=== PATIENT | male | born 1985 | race African-American/Black ===

== ENCOUNTER 2025-06-05 23:16 | Inpatient (IN) | payer OTHER, SELFPAY ==
[2025-06-05 19:42] VITALS: BP 163/67
[2025-06-05 20:42] LABS: Hematocrit 51.5 % (39.0-52.0); Hemoglobin 17.0 g/dL (13.0-18.0); Mean Corp Hgb Conc. 33.0 g/dL (33.0-37.0); Mean Corpuscular Volume 88.5 fL (80.0-94.0); Nucleated Red Blood Cells % 0 % (-); Platelet Count 289 10^3/uL (130-400); Red Cell Dist. Width 14.8 % (11.5-14.5)
[2025-06-05 20:48] LABS: ALT (SGPT) 20 U/L (0-50); AST (SGOT) 20 U/L (17-59); Albumin 4.6 g/dl (3.5-5.0); Alkaline Phosphatase 65 U/L (38-126); Blood Urea Nitrogen 14 mg/dl (9-20); Calcium 9.3 mg/dl (8.4-10.2); Carbon Dioxide 28 mmol/L (22-30); Chloride 103 mmol/L (98-107); Glucose 80 mg/dl (70-99); Potassium 3.8 mmol/L (3.5-5.1); Sodium 136 mmol/L (135-145); Total Protein 8.0 g/dl (6.3-8.2); eGFR > 60.00
--- NOTE | 2025-06-05 20:52 | ED.GENMED ---
History of Present Illness
<Maria De Jesus Camilo PA-C - Last Filed: 06/06/25 01:35>
General
Chief Complaint: Breathing Problem
Source: patient
Exam Limitations: none
Time Seen by Provider: 06/05/25 20:49
History of Present Illness
History of Present Illness:
39yoM with a prior history of methamphetamine use (last use November of this year, currently at [facility]) presenting for evaluation of shortness of breath. Symptoms began this morning. Patient initially started with URI symptoms and cough.
He subsequently developed dyspnea. He states it feels like a brick is sitting on top of his chest. He denies any fevers. No prior history of asthma. He vapes nicotine.
Phy Exam
<Maria De Jesus Camilo PA-C - Last Filed: 06/06/25 01:35>
General Physical Exam
General Presentation: moderate distress
General Skin: warm and dry
General Habitus: normal
General Mental: alert
ENT Exam
ENT Exam: normocephalic
Cardiovascular Exam
Cardiovascular Exam: regular rate/rhythm
Pulmonary Exam
Pulmonary Exam: generalized wheezing and other (Moderate respiratory distress noted with tachypnea, generalized wheezing, and conversational dyspnea.)
Neurological Exam
Neurological Exam: alert
Fredy Coma Scale
Eye Opening: Spontaneous
Verbal Response: Oriented
Motor Response: Obeys Commands
GCS Total Score: 15
Skin Exam
Skin Exam: normal color and warm/dry
Psychiatric Exam
Psychiatric Exam: normal mood/affect
Course
<Maria De Jesus Camilo PA-C - Last Filed: 06/06/25 01:35>
Orders/Labs/Results
Orders:
Orders
06/05/25 19:41
Electrocardiogram (*1) Urgent
Reason for Study: Shortness of Breath
EKG- Treatment ONCE
06/05/25 20:01
Complete Blood Count/With Diff Urgent
Comprehensive Metabolic Panel Urgent
Troponin I Urgent
06/05/25 20:57
Albuterol Sulfate [Ventolin Nebules] 10 mg INH R NOW STA
Dexamethasone Sod Phosphate [Decadron] 10 mg IV NOW STA
Ipratropium Nebs [Atrovent Nebules] 0.5 mg INH R NOW STA
Magnesium Sulfate 2 Gram/50 ml [Magnesium Sulfate] 2 gram in 50 ml IV NOW
CXR Port [CR Chest Portable - 1 View] Stat
Comment:
Reason For Exam: SOB
Reason Study Needs to be Portable: Patient Unstable
06/05/25 21:10
COVID-19 Antigen Urgent
Source: Nasal Swab
D-Dimer Urgent
Influenza A+B Rapid Molecular Urgent
MADIHA Source: Nasal Swab
Specimen Description:
06/05/25 22:23
Albuterol Sulfate [Ventolin Nebules] 10 mg INH R NOW STA
Ipratropium Nebs [Atrovent Nebules] 1 mg INH R NOW STA
06/05/25 23:06
Admit/Transfer Patient As Directed
Co-Sign Provider:
Level of Care: Inpatient admission
Assign to:: Telemetry
Physician / Group: oneyda
Diagnosis: asthmatic bronchitis
Reason for Telemetry: Arrhythmia
Date to Stop Telemetry: 06/08/25
Time to Stop Telemetry: 11:00
Reason for Hospitalization: asthmatic bronchitis
Expected length of stay greater than two midnights?: Yes
ELOS- Estimated Length of Stay in days: 2
I certify the patient meets the requirements for IP care: Yes
Code Status As Directed
Resuscitation Status: Full Code
PRN Pain Medication Management As Directed
May give lesser potent ordered pain med per pt: Yes
preference::
Protocol:: Medication orders for pain may be administered in a
manner that supports deferring to patient preference
when the pt is:
- Requesting an ordered lesser potent pain medication.
Least to most potent pain medications are defined
as: acetaminophen < NSAID < tramadol < opioids
(morphine, oxycodone, hydromorphone).
- Requesting a lesser dose of the same medication IF
ORDERED.
- Requesting a less intrusive route of administration
if both routes are prescribed by the provider (PO <
IV).
06/05/25 23:09
PRN Pain Medication Management As Directed
May give lesser potent ordered pain med per pt: Yes
preference::
Protocol:: Medication orders for pain may be administered in a
manner that supports deferring to patient preference
when the pt is:
- Requesting an ordered lesser potent pain medication.
Least to most potent pain medications are defined
as: acetaminophen < NSAID < tramadol < opioids
(morphine, oxycodone, hydromorphone).
- Requesting a lesser dose of the same medication IF
ORDERED.
- Requesting a less intrusive route of administration
if both routes are prescribed by the provider (PO <
IV).
06/06/25 01:14
Dexamethasone Sod Phosphate [Decadron] 4 mg IV Q12H
06/06/25 01:14
Activity As Directed
Activity Level: As Tolerated
Vital Signs As Directed
Frequency: Per unit guidelines
DX Deep Vein Thrombosis Video Routine
06/06/25 06:00
Complete Blood Count/With Diff IN AM
Comprehensive Metabolic Panel IN AM
06/06/25 08:00
Heparin 5,000 units SC Q12
Ipratropium/Albuterol Sulfate [Duoneb] 3 ml INH R QID
06/06/25 Dinner
Regular
At Your Request: Full Participation
06/08/25 11:00
DC Protocol for Telemetry ONCE
Abnormal Lab Results
06/05/25
20:01
WBC 15.1 H 10^3/uL
(4.8-10.8)
RDW 14.8 H %
(11.5-14.5)
Abs Immat Gran (auto) 0.1 H 10^3/uL
(0-0.05)
Absolute Neuts (auto) 11.8 H 10^3/uL
(1.4-6.5)
Absolute Monos (auto) 1.7 H 10^3/uL
(0.1-0.6)
Neutrophils % 78.1 H %
(42.2-75.2)
Lymphocytes % 8.9 L %
(20.5-51.1)
Monocytes % 10.9 H %
(1.7-9.3)
06/05/25 20:01
06/05/25 20:01
Vital Signs
Initial and Last Documented VS:
Initial Vital Signs
Temp Pulse Resp BP Pulse Ox
98.6 F 108 20 163/67 94
06/05/25 19:42 06/05/25 19:42 06/05/25 19:42 06/05/25 19:42 06/05/25 19:42
Last Documented Vital Signs
Temp Pulse Resp BP Pulse Ox
98.6 F 119 27 163/67 91
06/05/25 19:42 06/05/25 23:45 06/05/25 23:45 06/05/25 19:42 06/05/25 23:45
<Frank Suero, DO - Last Filed: 06/05/25 22:45>
Orders/Labs/Results
Orders:
Orders
06/05/25 19:41
Electrocardiogram (*1) Urgent
Reason for Study: Shortness of Breath
EKG- Treatment ONCE
06/05/25 20:01
Complete Blood Count/With Diff Urgent
Comprehensive Metabolic Panel Urgent
Troponin I Urgent
06/05/25 20:57
Albuterol Sulfate [Ventolin Nebules] 10 mg INH R NOW STA
Dexamethasone Sod Phosphate [Decadron] 10 mg IV NOW STA
Ipratropium Nebs [Atrovent Nebules] 0.5 mg INH R NOW STA
Magnesium Sulfate 2 Gram/50 ml [Magnesium Sulfate] 2 gram in 50 ml IV NOW
CXR Port [CR Chest Portable - 1 View] Stat
Comment:
Reason For Exam: SOB
Reason Study Needs to be Portable: Patient Unstable
06/05/25 21:10
COVID-19 Antigen Urgent
Source: Nasal Swab
D-Dimer Urgent
Influenza A+B Rapid Molecular Urgent
MADIHA Source: Nasal Swab
Specimen Description:
06/05/25 22:23
Albuterol Sulfate [Ventolin Nebules] 10 mg INH R NOW STA
Ipratropium Nebs [Atrovent Nebules] 1 mg INH R NOW STA
06/05/25 23:06
Admit/Transfer Patient As Directed
Co-Sign Provider:
Level of Care: Inpatient admission
Assign to:: Telemetry
Physician / Group: oneyda
Diagnosis: asthmatic bronchitis
Reason for Telemetry: Arrhythmia
Date to Stop Telemetry: 06/08/25
Time to Stop Telemetry: 11:00
Reason for Hospitalization: asthmatic bronchitis
Expected length of stay greater than two midnights?: Yes
ELOS- Estimated Length of Stay in days: 2
I certify the patient meets the requirements for IP care: Yes
Code Status As Directed
Resuscitation Status: Full Code
PRN Pain Medication Management As Directed
May give lesser potent ordered pain med per pt: Yes
preference::
Protocol:: Medication orders for pain may be administered in a
manner that supports deferring to patient preference
when the pt is:
- Requesting an ordered lesser potent pain medication.
Least to most potent pain medications are defined
as: acetaminophen < NSAID < tramadol < opioids
(morphine, oxycodone, hydromorphone).
- Requesting a lesser dose of the same medication IF
ORDERED.
- Requesting a less intrusive route of administration
if both routes are prescribed by the provider (PO <
IV).
06/05/25 23:09
PRN Pain Medication Management As Directed
May give lesser potent ordered pain med per pt: Yes
preference::
Protocol:: Medication orders for pain may be administered in a
manner that supports deferring to patient preference
when the pt is:
- Requesting an ordered lesser potent pain medication.
Least to most potent pain medications are defined
as: acetaminophen < NSAID < tramadol < opioids
(morphine, oxycodone, hydromorphone).
- Requesting a lesser dose of the same medication IF
ORDERED.
- Requesting a less intrusive route of administration
if both routes are prescribed by the provider (PO <
IV).
06/06/25 01:14
Dexamethasone Sod Phosphate [Decadron] 4 mg IV Q12H
06/06/25 01:14
Activity As Directed
Activity Level: As Tolerated
Vital Signs As Directed
Frequency: Per unit guidelines
DX Deep Vein Thrombosis Video Routine
06/06/25 06:00
Complete Blood Count/With Diff IN AM
Comprehensive Metabolic Panel IN AM
06/06/25 08:00
Heparin 5,000 units SC Q12
Ipratropium/Albuterol Sulfate [Duoneb] 3 ml INH R QID
06/06/25 Dinner
Regular
At Your Request: Full Participation
06/08/25 11:00
DC Protocol for Telemetry ONCE
Abnormal Lab Results
06/05/25
20:01
WBC 15.1 H 10^3/uL
(4.8-10.8)
RDW 14.8 H %
(11.5-14.5)
Abs Immat Gran (auto) 0.1 H 10^3/uL
(0-0.05)
Absolute Neuts (auto) 11.8 H 10^3/uL
(1.4-6.5)
Absolute Monos (auto) 1.7 H 10^3/uL
(0.1-0.6)
Neutrophils % 78.1 H %
(42.2-75.2)
Lymphocytes % 8.9 L %
(20.5-51.1)
Monocytes % 10.9 H %
(1.7-9.3)
06/05/25 20:01
06/05/25 20:01
Vital Signs
Initial and Last Documented VS:
Initial Vital Signs
Temp Pulse Resp BP Pulse Ox
98.6 F 108 20 163/67 94
06/05/25 19:42 06/05/25 19:42 06/05/25 19:42 06/05/25 19:42 06/05/25 19:42
Last Documented Vital Signs
Temp Pulse Resp BP Pulse Ox
98.6 F 119 27 163/67 91
06/05/25 19:42 06/05/25 23:45 06/05/25 23:45 06/05/25 19:42 06/05/25 23:45
Lisalt;Maria De Jesus Camilo PA-C - Last Filed: 06/06/25 01:35>
MDM/Problems Addressed
Differential Diagnosis Includes:
39yoM here with SOB and cough that began this morning. Oxygen saturation 94% in triage. Patient in moderate respiratory distress on initial exam with generalized wheezing and tachypnea. No history of asthma but patient does vape. Differential
diagnosis includes but is not limited to: Vaping related lung injury, bronchitis, pneumonia, pneumothorax, asthma exacerbation
Initial ED plan: Workup initiated in triage. Leukocytosis noted with a white count of 15. Troponin within normal limits. EKG shows normal sinus rhythm with frequent PVCs. Will check COVID/flu swab, D-dimer, portable chest x-ray. Hour-long neb
treatment, IV Decadron, and IV magnesium ordered.
<Maria De Jesus Camilo PA-C - Last Filed: 06/06/25 01:35>
*Pulse Oximetry
SaO2: 94
Oxygen Mode of Delivery: Room air
*EKG
Interpreted by ED Provider?: Yes
EKG Intrepretation Date: 06/05/25
Heart Rate: 105
Rate: tachycardiac
Rhythm: sinus and PVC's
[place]: normal axis
Interval: normal interval
QRS Pattern: normal QRS
Ischemia: no ischemia
<Frank Suero DO - Last Filed: 06/05/25 22:45>
*Radiology
Radiology exam reviewed: radiology read reviewed
*Pulse Oximetry
SaO2: 89
Patient hypoxic: yes
*Critical Care Note
Total Time (30-74mins, 75-104mins- exclusive of procedures): Not Applicable
<Maria De Jesus Camilo PA-C - Last Filed: 06/06/25 01:35>
Update Note
Update Note:
Chest x-ray clear and viral testing negative. D-dimer normal making PE very unlikely. On reassessment, patient reports feeling about 50% improved. He continues to have diffuse wheezing. Oxygen saturation 90 to 91% after neb treatment. Second
hour-long treatment ordered. Patient will require admission for further treatment.
ED Attending Note
<Maria De Jesus Caimlo PA-C - Last Filed: 06/06/25 01:35>
-
Portions of this chart may have been created with voice recognition software.� Occasional wrong word or��sound alike� substitutions may have occurred due to the inherent limitations of voice recognition software.
<Frank Suero, DO - Last Filed: 06/05/25 22:45>
ED Attending Note
Patient seen and examined by attending physician: Yes
I performed the substantive portion of visit, reviewed & personally made and approve the management plan that is documented in note by myself or BUSHRA.: Yes
ED Attending Note:
Seen with PA examined independently 39-year-old male recovery house for methamphetamine clean for about 6 or 7 months he vapes presents with cough shortness of breath bronchospasm treated with nebs steroids magnesium still bronchospastic with low
pulse ox chest x-ray noted, D-dimer noted will require admission for general supportive care nebulizer supplemental oxygen consideration for specialty consultation patient counseled that he should stop using vapes
Discharge Plan
Departure
Patient Disposition: Admit
Date of Disposition: 06/05/25
Time of Disposition: 22:42
Presentation/result/management discussed w/ accepting MD/DO: Hospitalist
Discharge Problem:
Acute bronchospasm
Interventions
Interventions:
*Risk Screen - Suicide Last Done: 06/05/25 21:36
*General Assessment Last Done: 06/05/25 19:42
*Neglect/Abuse Screening Last Done: 06/05/25 21:36
*ED- Fall Risk Assessment Last Done: 06/05/25 21:36
*ED COVID-19 Vaccine History Last Done: 06/05/25 21:36
*ED Influenza Vaccine History Last Done: 06/05/25 21:36
ED- Cardiac Assessment Last Done: 06/05/25 21:36
ED- Pulmonary Assessment Last Done: 06/05/25 21:36
[2025-06-05 20:57] LABS: Troponin I 0.017 ng/ml
[2025-06-05] MEDS: VENTOLIN NEBULES 10 MG INH ×2 (21:07→22:42)
[2025-06-05] MEDS: DECADRON 10 MG IV (21:24)
[2025-06-05] MEDS: MAGNESIUM SULFATE 50 IV (21:24)
[2025-06-05] MEDS: ATROVENT NEBULES 0.5 MG INH (21:25)
[2025-06-05 21:36] LABS: D-Dimer 0.36 ug/mlFEU (0.00-0.50)
[2025-06-05 21:51] LABS: COVID-19 Antigen Negative (Negative)
[2025-06-05] MEDS: ATROVENT NEBULES 1 MG INH (22:43)
--- NOTE | 2025-06-05 23:08 | HPS.HSE ---
Family Physician
-
Family Physician: Pawan Bar
Chief Complaint
-
shortness of breath
History of Present Illness
39-year-old male past medical history of methamphetamine use recently in November of this year, history of vaping, anxiety/depression, presenting with shortness of breath and cough starting this morning. He started having sore throat this morning.
Feels like brick is sitting on his chest. Denies any fever. Denies prior history of asthma or lung conditions.
He does vape nicotine regularly
No prior lung conditions. Family history is unknown.
He denies alcohol, marijuana use or any other drugs.
Medical History
Past Medical History
Past Medical History: Reports Other (methamphetamine use recently in November of this year, history of vaping, anxiety/depression)
Past Surgical History: Reports None
Social History
Tobacco: Vaping
Alcohol: None
Drug: None
Family History
Family History: Not pertinent
Allergies / Home Medications
Allergies reflects when Allergies were last updated in [email or web address].
Home Medications with original date entered in [email or web address]
Allergy/Medication List:
Allergies
Allergy/AdvReac Type Severity Reaction Status Date / Time
No Known Allergies Allergy Unverified 06/05/25 22:34
Review of Systems
-
History Source: Patient
A 12 point ROS was completed and negative except as noted: Yes
Constitutional: Reports No Symptoms
EENT: Reports No Symptoms
Respiratory: Reports See HPI
Cardiac: Reports No Symptoms
Abdomen/GI: Reports No Symptoms
: Reports No Symptoms
Musculoskeletal: Reports No Symptoms
Skin: Reports No Symptoms
Neurological: Reports No Symptoms
Endocrine: Reports No Symptoms
Hematologic/Lymphatic: Reports No Symptoms
Psych: Reports No Symptoms
Physical Exam
Vital Signs
Vital Signs
Temp Pulse Resp BP Pulse Ox
98.6 F 119 29 163/67 89
06/05/25 19:42 06/05/25 22:45 06/05/25 22:45 06/05/25 19:42 06/05/25 22:45
Physical Exam
General: Well Developed, Well Nourished and No Apparent Distress
HEENT: NormoCephalic, Moist mucous membranes and Atraumatic
Respiratory: Wheezes
Cardiac: S1/S2 and Regular Rhythm; No Murmur or Rub
GI: Soft, Non Tender, Non Distended and Normal Bowel Sounds; No Organomegaly
Rectal: Deferred by Provider
Musculoskeletal: No Clubbing, No Cyanosis and No Edema
Skin: No Rash
Neuro: Nonfocal/grossly intact
Laboratory Results
-
06/05/25 20:01
06/05/25 20:01
Laboratory Results
Total Bilirubin 1.0 mg/dl (0.2-1.3) 06/05/25 20:01
AST 20 U/L (17-59) 06/05/25 20:01
ALT 20 U/L (0-50) 06/05/25 20:01
Alkaline Phosphatase 65 U/L (38-126) 06/05/25 20:01
Troponin I 0.017 ng/ml 06/05/25 20:01
Data Reviewed
-
Lab Data: Labs Reviewed by me
Old Records: Reviewed
Impression/Plan
-
IMPRESSION:
PLAN:
# Acute asthmatic bronchitis
# Current vaping history
-D-dimer 0.36
-COVID and flu negative
-Chest x-ray showed no cardiopulmonary disease
- DuoNebs every 6
- Dexamethasone 4 mg every 12
History of methamphetamine use
- Takes N-acetylcysteine to prevent cravings
Anxiety/depression
-Continue Zoloft, BuSpar
Full code
DVT prophylaxis�heparin
Regular diet
[2025-06-06] VITALS (8 sets, daily range): BP systolic 105–132; BP diastolic 65–80; BMI 31.2
[2025-06-06] MEDS: DECADRON 4 MG IV ×2 (01:58→13:16)
--- NOTE | 2025-06-06 05:30 | PTCARENOTE ---
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
[2025-06-06] MEDS: DUONEB 3 ML INH ×2 (07:49→11:04)
[2025-06-06] MEDS: HEPARIN 5000 UNITS SC ×2 (07:50→20:00)
[2025-06-06 09:38] LABS: Hematocrit 45.1 % (39.0-52.0); Hemoglobin 15.3 g/dL (13.0-18.0); Mean Corp Hgb Conc. 33.9 g/dL (33.0-37.0); Mean Corpuscular Volume 84.3 fL (80.0-94.0); Nucleated Red Blood Cells % 0 % (-); Platelet Count 283 10^3/uL (130-400); Red Cell Dist. Width 14.5 % (11.5-14.5)
--- NOTE | 2025-06-06 10:51 | W.PN.HOSP.TC ---
Today's Communication/Plan
-
Assessment / Plan
Assessment / Plan
General: No Apparent Distress, Comfortable and Conversant
HEENT: NormoCephalic, Moist mucous membranes, Atraumatic
Respiratory: Moderate expiratory wheezing bilaterally, Non Labored Respirations
Cardiac: S1/S2 and Regular Rhythm; No Rub or Gallop
GI: Soft, Non Tender, Non Distended and Normal Bowel Sounds
Musculoskeletal: No Edema, no deformity
Skin: Warm and dry
: NO Rush
Neuro: Awake, Alert, Nonfocal/grossly intact
Psych: Calm and Intact Judgment/Insight
Mr. Arias is a 39-year-old male with a medical history of methamphetamine use (clean for approximately 7 months), anxiety/depression, and vaping nicotine who presented with cough and shortness of breath. He also reported a sore throat and multiple
recent sick contacts. He denies a history of asthma. He does not know his family history. He was bronchospastic on exam in the ED and so started on IV steroids and nebulizer treatments with symptomatic improvement. Respiratory panel was negative
for influenza or COVID. He was admitted for further evaluation and management.
Bronchospasm:
- No history of asthma
- Likely multifactorial due to vaping and viral illness
- Chest x-ray shows no evidence of pneumonia
- Continue IV steroids and nebulizer treatments
- To be evaluated by pulmonology
- Currently not hypoxic, will monitor
DVT prophylaxis: Subcu heparin
CODE STATUS: Full code
Anticipated Discharge: 24 - 48 hours
Subjective/Interval History
-
Date of Service: June 06, 2025
Patient was seen and examined at bedside this morning. Comfortable resting in bed. Reports feeling short of breath when walking to the bathroom. Reports no history of asthma.
Objective Data
-
Labs:
Laboratory Results
06/06/25
09:13
WBC 19.8 H
Hgb 15.3
Hct 45.1
Plt Count 283
Sodium Pending
Potassium Pending
Chloride Pending
Carbon Dioxide Pending
BUN Pending
Creatinine Pending
Glucose Pending
Calcium Pending
Total Bilirubin Pending
AST Pending
ALT Pending
Alkaline Phosphatase Pending
Vital Signs:
Vital Signs
Temp Pulse Resp BP Pulse Ox
97.6 F 91 18 108/71 99
06/06/25 07:55 06/06/25 07:55 06/06/25 07:55 06/06/25 07:55 06/06/25 07:55
Review of Systems
-
History Source: Patient
All other systems: Reviewed and negative
Respiratory: Reports Trouble Breathing (Dyspnea on exertion)
Physical Exam
-
General: No Apparent Distress
--- NOTE | 2025-06-06 11:15 | PHANOTE ---
Med Rec Note:
Pt was inpatient at [facility], spoke with nursing staff and received medication list. Home med list updated.
[2025-06-06 11:20] LABS: ALT (SGPT) 20 U/L (0-50); AST (SGOT) 20 U/L (17-59); Albumin 4.5 g/dl (3.5-5.0); Alkaline Phosphatase 62 U/L (38-126); Blood Urea Nitrogen 15 mg/dl (9-20); Calcium 9.3 mg/dl (8.4-10.2); Carbon Dioxide 23 mmol/L (22-30); Chloride 102 mmol/L (98-107); Estimated Creatinine Clearance 90 ml/min; Glucose 142 mg/dl (70-99); Potassium 3.9 mmol/L (3.5-5.1); Sodium 133 mmol/L (135-145); Total Protein 7.8 g/dl (6.3-8.2); eGFR > 60.00
--- NOTE | 2025-06-06 11:53 | CON.PUL ---
Addendum entered and electronically signed by Yoselin Alan DO 06/06/25 15:34:
PFT reviewed with severe obstruction
Will include severe persistent asthma diagnosis
Original Note:
Consultation
Consultation Request
Date/Time Consultation Requested: 06/06/25
Date/Time Consultation Performed: 06/06/25
Performing Provider: Dayanna
Reason for Consultation: VILI
Medical History
-
History of Present Illness:
39-year-old male with previous history of methamphetamine use, former smoker presenting with shortness of breath and cough starting day of admission. He does admit to history of nicotine vaping, was never diagnosed with previous history of lung
disease. He does not know if there is family history of asthma. He does admit to concurrent allergic rhinitis complaints.
Chest x-ray demonstrating no acute findings, he has ongoing shortness of breath and cough complaints.
Former smoker, 1 pack a day for 5 years, has since quit.
No prior PFTs for review, does not regularly see primary care providers.
Past Medical History
Past Medical History: Other (See list below)
Social History
Tobacco: Former Smoker
Alcohol: None
Drug: Former User
Family History
Family History: Reviewed & Not Pertinent
Allergies / Home Medications
Allergies
Allergy/AdvReac Type Severity Reaction Status Date / Time
No Known Allergies Allergy Unverified 06/05/25 22:34
Home Medications
�Medication �Instructions �Recorded �Confirmed �Last Taken �Type
acetylcysteine 600 mg capsule (NAC) 1,200 mg PO BID 06/06/25 06/06/25 Unknown History
buspirone 30 mg tablet 30 mg PO BID 06/06/25 06/06/25 Unknown History
sertraline 50 mg tablet 50 mg PO DAILY 06/06/25 06/06/25 Unknown History
trazodone 50 mg tablet 50 mg PO HSPRN PRN sleep 06/06/25 06/06/25 Unknown History
Review of Systems
-
History Source: Patient
All other systems: Negative unless noted
Vitals / Labs / Diagnostic Testing
Vital Signs
Temp Pulse Resp BP Pulse Ox
98.4 F 90 16 112/75 95
06/06/25 11:03 06/06/25 11:05 06/06/25 11:05 06/06/25 11:03 06/06/25 11:05
Lab Data
06/06/25 09:13
06/06/25 09:13
Microbiology
06/05/25 21:10 Nasal Swab Influenza Types A & B (NANO) - Final
Negative for Influenza A & B, NAAT
Negative results must be combined with clinical observations
and patient history.
Nucleic Acid Amplification test (NAAT)performed on the
[employer] platform.
Diagnostic Testing:
Physical Exam
-
HEENT: Normocephalic, Anicteric and Moist Mucous Membranes
Cardiovascular: S1/S2 and Regular Rhythm
Respiratory: Clear and Non-Labored Respirations
GI: Soft, Non Distended and Non Tender
Neurology: Awake, Alert, Oriented and No Motor Deficits
Skin: Warm, Dry and Good Color
General: Comfortable and Other (NAD)
Assessment
-
39-year-old male with previous history of methamphetamine use, former smoker presenting with shortness of breath and cough starting day of admission. He does admit to history of nicotine vaping, was never diagnosed with previous history of lung
disease. He does not know if there is family history of asthma. He does admit to concurrent allergic rhinitis complaints.
Chest x-ray demonstrating no acute findings, he has ongoing shortness of breath and cough complaints. We are consulted for evaluation.
Acute exacerbation of asthma suspected
Vaping induced lung injury (VILI)
Shortness of breath, cough
Suspect allergic rhinitis
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
Prior history of methamphetamine use
Former smoker
Anxiety/depression
Plan
No oxygen was needed on admission, currently saturating >90% on RA
Prior history of lung disease is NOT noted---Former smoker, 1 pack a day for 5 years, has since quit.
No prior PFTs for review, does not regularly see primary care providers.
Suspect there may be underlying asthma, undiagnosed--he has had exertional complaints over the years
There is concurrent possible allergic rhinitis as well
He is started on IV steroids for possible asthma exacerbation
CXR obtained indicating no acute findings
Will obtain bedside charity for confirmation
We discussed asthma treatment and importance of follow up
Smoking history noted
Smoking cessation--can change to NRT including patches/lozenges to avoid vaping
Weight loss measures recommended
Obesity may be contributing to respiratory symptoms
Will need outpatient pulmonary evaluation in our office for PFTs and 6MWT
Reviewed with patient, discussed importance of outpatient FU and primary prevention
We will follow
Diagnostic Data
Chest X-Ray: 06/05/25- No radiographic evidence for cardiopulmonary disease.
CT Scan:
Echo:
PFT's:
Reports and relevant images were personally reviewed.
Total time spent on this consultation __55__ minutes which includes review of history, physical exam, medications, laboratory data, personal review of imaging, extensive review of outpatient records, discussion with care team and respiratory therapy.
[2025-06-06] MEDS: ZOLOFT 50 MG PO (12:16)
[2025-06-06] MEDS: BUSPAR 30 MG PO ×2 (13:16→20:00)
--- NOTE | 2025-06-06 14:18 | CM ---
Chart reviewed and patient was admitted from [facility] in [place], and plan is for patient to return to there today, patient to finish treatment program. patient is independent with adl's and ambulation, no dme.
PCP: Pawan Bar
Pharmacy: [facility] in [place].
[2025-06-06] MEDS: VENTOLIN NEBULES 2.5 MG INH (14:50)
[2025-06-06] MEDS: DUONEB INH (14:55)
[2025-06-06] MEDS: SYMBICORT 160/4.5 MCG INHALER 2 PUFF INH (19:44)
[2025-06-07] MEDS: DECADRON 4 MG IV ×2 (00:25→12:42)
--- NOTE | 2025-06-07 02:20 | DOWNTIME ---
There was a [employer] Client [employer] M[employer] Operator Downtime on 06/07/2025 from 0100 to 06/07/2025 at 0215. Downtime documentation of patient's care, including medication administrations, has been reconciled in the electronic record per guidelines. Refer to the
patient's paper chart under the miscellaneous tab to see printed paper medication records and downtime forms.
[2025-06-07 03:00] VITALS: BP 139/89
[2025-06-07] MEDS: HEPARIN 5000 UNITS SC (07:19)
[2025-06-07] MEDS: BUSPAR 30 MG PO (07:19)
[2025-06-07] MEDS: NICODERM TRANSDERMAL 21 MG TRANSDERM (07:19)
[2025-06-07 07:45] VITALS: BP 136/94
[2025-06-07] MEDS: SYMBICORT 160/4.5 MCG INHALER 2 PUFF INH (08:09)
[2025-06-07 08:30] LABS: Hematocrit 46.4 % (39.0-52.0); Hemoglobin 15.5 g/dL (13.0-18.0); Mean Corp Hgb Conc. 33.4 g/dL (33.0-37.0); Mean Corpuscular Volume 85.9 fL (80.0-94.0); Platelet Count 294 10^3/uL (130-400); Red Cell Dist. Width 15.0 % (11.5-14.5)
[2025-06-07 08:47] LABS: Blood Urea Nitrogen 18 mg/dl (9-20); Calcium 9.2 mg/dl (8.4-10.2); Carbon Dioxide 26 mmol/L (22-30); Chloride 104 mmol/L (98-107); Estimated Creatinine Clearance 90 ml/min; Glucose 141 mg/dl (70-99); Potassium 4.6 mmol/L (3.5-5.1); Sodium 140 mmol/L (135-145); eGFR > 60.00
[2025-06-07] MEDS: ZOLOFT 50 MG PO (08:55)
[2025-06-07 11:02] LABS: Nucleated Red Blood Cells % 0 % (-)
[2025-06-07 11:11] VITALS: BP 128/82
--- NOTE | 2025-06-07 11:28 | W.DCSUMMARY ---
Discharge Summary
Discharge Data
Date of Admission: 06/05/25
Date of Discharge: 06/07/25
-
Pending Results: No
Hospital Course
Mr. Arias is a 39-year-old male with a medical history of methamphetamine use (clean for approximately 7 months), anxiety/depression, and vaping nicotine who presented with cough and shortness of breath. He also reported a sore throat and multiple
recent sick contacts. He denies a history of asthma. He does not know his family history. He was bronchospastic on exam in the ED and so started on IV steroids and nebulizer treatments with symptomatic improvement. Respiratory panel was negative
for influenza or COVID. Chest imaging was unremarkable. He was admitted for further evaluation and management.
He has no known history of asthma. He was evaluated inpatient by pulmonology and diagnosed with severe persistent asthma. He continued to improve on treatment with Symbicort and steroids. He will be discharged home with close outpatient
pulmonology follow-up. He was not hypoxic during this admission. He has been encouraged to discontinue vaping and a prescription for nicotine patches was provided.
General: No Apparent Distress, Comfortable and Conversant
HEENT: NormoCephalic, Moist mucous membranes, Atraumatic
Respiratory: Moderate expiratory wheezing, Non Labored Respirations
Cardiac: S1/S2 and Regular Rhythm; No Rub or Gallop
GI: Soft, Non Tender, Non Distended and Normal Bowel Sounds
Musculoskeletal: No Edema, no deformity
: NO Rush
Neuro: Awake, Alert, Nonfocal/grossly intact
Psych: Calm and Intact Judgment/Insight
Discharge Plan
-
Patient Disposition: Home (Routine Discharge)
Discharge Diagnosis/Procedures: Severe persistent asthma with acute exacerbation
Activity Restrictions/Additional Instructions:
You were admitted for difficulty breathing. You were diagnosed with severe persistent asthma and started on treatment with inhalers and steroids. You will be discharged to home with a tapering course of oral steroids and prescriptions for a daily
scheduled inhaler and additional rescue inhaler to use as needed when you have difficulty breathing. It is important that you follow-up closely in the outpatient pulmonology office for further testing and management. It is also very important that
you discontinue smoking or vaping.
Referrals:
Pawan Bar MD [Family Provider, Gastroenterology]
Yoselin Alan DO [Active, Pulmonary Medicine] - in four to six weeks
Referral Note: PFTs
Prescriptions:
New
nicotine 21 mg/24 hr Patch 24 Hour
21 mg transdermal DAILY 30 Days Qty: 30 0RF
albuterol sulfate 90 mcg/actuation Hfa Aerosol Inhaler
1 puff inhalation R Q4HPRN PRN (Reason: sob/wheeze) Qty: 3 0RF
budesonide-formoterol [Symbicort] 160-4.5 mcg/actuation Hfa Aerosol Inhaler
2 puff inhalation R BID Qty: 3 0RF
prednisone 10 mg tablet
See Taper PO DIRECTED Qty: 30 0RF
Taper: Prednisone DC Starting at 40 mg daily
40 mg Daily for 3 Days and 0 Hour
30 mg Daily for 3 Days and 0 Hour
20 mg Daily for 3 Days and 0 Hour
10 mg Daily for 3 Days and 0 Hour
Continued
trazodone 50 mg Tablet
50 mg PO HSPRN PRN (Reason: sleep)
buspirone 30 mg Tablet
30 mg PO BID
sertraline 50 mg Tablet
50 mg PO DAILY
acetylcysteine [NAC] 600 mg Capsule
1,200 mg PO BID
Discharge Orders:
Discharge Patient (As Directed); Ordered 06/07/25
Ordered By: Eddie Georges
Discharge Date and Time
Print Language: INDONESIAN
--- NOTE | 2025-06-07 12:42 | CM ---
Patient has been medically cleared for discharge back to [facility] in [place]. [facility] has arranged for transport at 2:00 PM. Patient aware. No additional skilled services required.
[2025-06-07] MEDS: FLUZONE (6 mos+) 2025-2026 FORMULA 0.5 ML IM (12:43)
== END 2025-06-07 14:12 | DRG 203 ==
LOC: 1 ACUTE 23:16
PROVIDERS: Emergency Medicine; Physician Assistant; ADMITTING PHYSICIAN Hospitalist; ATTENDING PHYSICIAN Internal Medicine; CONSULT PHYSICIAN Internal Medicine; EMERGENCY PHYSICIAN Emergency Medicine; FAMILY PHYSICIAN Internal Medicine Gastroenterology
PROC: 3E02340 Introduction of Influenza Vaccine into Muscle, Percutaneous Approach (ICD-10-PCS; 2025-06-07)
DX: J45.51 Severe persistent asthma with (acute) exacerbation (principal); Z11.52 Encounter for screening for COVID-19; Z23 Encounter for immunization; F41.9 Anxiety disorder, unspecified; F32.A Depression, unspecified; F17.290 Nicotine dependence, other tobacco product, uncomplicated; E66.9 Obesity, unspecified; Z68.31 Body mass index [BMI] 31.0-31.9, adult; U07.0 Vaping-related disorder; Z79.899 Other long term (current) drug therapy
CPT/HCPCS: 71045; 80048; 80053; 84484; 85025; 85379; 87502; 87811; 90656; 93005; 94060; 94640; 96374; 96375; 99285; G0008